=== PATIENT | female | born 1960 | race Caucasian/White ===

== ENCOUNTER 2017-01-16 18:55 | Emergency (ER) | payer OTHER ==
[~2017-01-16] VITALS: Ht 172.7 cm; Wt 110.0 kg
[~2017-01-16 18:55] MED LIST: ERGO50000 PO; GLUCTAB OR; PROT40TA PO
[2017-01-16 18:57] VITALS: BP 184/90; PULSE 101; RESP 18; TEMP 97.9; O2SAT 97
--- NOTE | 2017-01-16 19:43 | PD ---
HPI Chief Complaint: Musculoskeletal Complaint Time Seen by Provider: 19:23 Travel History International Travel<30 days: No Contact w/Intl Traveler<30days: No Traveled to known affect area: No History of Present Illness HPI 56-year-old female presents to the emergency department for evaluation right thumb injury that occurred just prior to arrival. Patient was agitated in her when she her knee gave out she fell landing on her right hand. She denies any head injury or LOC. No neck pain or back pain. No chest pain or abdominal pain. No nausea, vomiting, diarrhea. Patient is right-handed. She has no other injury or complaint at this time. There is an obvious deformity to the right thumb around the PIP joint. Severity is moderate. PFSH Past Medical History Cancer: No Cardiovascular Problems: No Endocrine: Yes Genitourinary: Yes Hepatitis: No Hiatal Hernia: No Immune Disorder: No Kidney Stones: Yes Musculoskeletal: No Neurologic: No Psychiatric: No Reproductive: Yes (born with double uterus) Respiratory: No Immunizations Current: Yes Thyroid Disease: No Tetanus Vaccination: Unknown Influenza Vaccination: No : 3 Para: 2 Miscarriage: 1 Past Surgical History Abdominal Surgery: Yes (GASTRIC BYPASS 2012) Cardiac Surgery: No Ear Surgery: No Endocrine Surgery: No Eye Surgery: Yes (lasik eye surgery right) Genitourinary Surgery: No Gynecologic Surgery: Yes (several benign cyst removed from breasts x2 c- section) Joint Replacement: No Neurologic Surgery: No Oral Surgery: No Pacemaker: No Thoracic Surgery: No Other Surgery: Yes Social History Alcohol Use: Yes (SOCIAL) Tobacco Use: No Substance Use: No Allergies-Medications (Allergen,Severity, Reaction): Coded Allergies: No Known Allergies (Verified Adverse Reaction, Unknown, 01/16/17) Reported Meds & Prescriptions Reported Meds & Active Scripts Active Ibuprofen 600 Mg Tab 600 Mg PO TID PRN [place] (Hydrocodone-Acetaminophen) 5 Mg-325 Mg Tab 1 Tab PO Q6H PRN Review of Systems Except as stated in HPI: all other systems reviewed are Neg Physical Exam Narrative GENERAL: Well-nourished, well-developed female patient, ambulatory. Afebrile. SKIN: Focused skin assessment warm/dry. No lacerations or abrasions. HEAD: Normocephalic. Atraumatic. EYES: No scleral icterus. No injection or drainage. NECK: Supple, trachea midline. No JVD or lymphadenopathy. CARDIOVASCULAR: Regular rate and rhythm without murmurs, gallops, or rubs. Right radial pulse is 2+. Capillary refill is less than 2 seconds to the right thumb. RESPIRATORY: Breath sounds equal bilaterally. No accessory muscle use. Lungs sounds are clear to auscultation. GASTROINTESTINAL: Abdomen soft, non-tender, nondistended. MUSCULOSKELETAL: No cyanosis, or edema. Patient has tenderness over right thumb with obvious deformity. She has full sensation distal right thumb. BACK: Nontender without obvious deformity. No CVA tenderness. Data Data Last Documented VS Vital Signs Date Time Temp Pulse Resp B/P (MAP) Pulse Ox O2 Delivery O2 Flow Rate FiO2 01/16/17 18:57 97.9 101 18 184/90 (121) 97 Room Air Orders Orders Ice/Cold Pack (01/16/17 19:03) Hand, Complete ([id number]) (01/16/17 ) Bupivacaine Pf 0.5% Inj (Marcaine Pf 0.5 (01/16/17 19:45) Lidocaine 1% Inj (50 Ml) (Xylocaine 1% I (01/16/17 19:45) Splint Or Brace Apply/Monitor (01/16/17 19:45) MDM Medical Decision Making Medical Screen Exam Complete: Yes Emergency Medical Condition: Yes Medical Record Reviewed: Yes Interpretation(s) Last Impressions Hand X-Ray 01/16/17 0000 Signed Impressions: Service Date/Time: Monday, January 16, 2017 19:26 - CONCLUSION: First proximal phalanx fracture with intra-articular extension to the first IP joint. Manoj Lowe MD Differential Diagnosis Dislocation versus fracture versus contusion Narrative Course 56-year-old female presents to the emergency department for evaluation of right thumb injury. Patient has obvious deformity. X-ray of the right thumb shows first proximal phalanx fracture with intra-articular extension to the first IP joint. A digital block is performed with 1% lidocaine 0.5% bupivacaine. The fracture will be realigned and thumb spica splint applied. The patient is instructed to follow-up with a hand surgeon. She'll be given the name and number of our hand surgeon on-call today. She is return here for any acute worsening of symptoms. Patient will be discharged short-term prescription for [place] as well as ibuprofen for pain. Procedures Procedure Narrative After area was cleansed with alcohol, a digital block with 1% lidocaine and 0.5 % Marcaine was done to reduce fracture of the first thumb. Diagnosis Primary Impression: Fracture of thumb, right, closed Qualified Codes: S62.511A - Displaced fracture of proximal phalanx of right thumb, initial encounter for closed fracture Referrals: Oskar Gaona III, MD 2 days Patient Instructions: General Instructions, Thumb Fracture (ED) Additional Instructions: Wear splint. Take ibuprofen as directed as needed for [id number] pain. Take [place] for moderate to severe pain. Caution this can make you drowsy so do not drive after taking. Follow-up with hand surgeon. Dr. Gaona is our hand surgeon on-call today. [facility]. Return to the emergency department for any acute worsening of symptoms. Med/Other Pt SpecificInfo: Prescription(s) given Scripts Ibuprofen (Ibuprofen) 600 Mg Tab 600 MG PO TID Y for PAIN SCALE 1 TO 10, #21 TAB 0 Refills Prov: Lolis Gonzalez 01/16/17 Hydrocodone-Acetaminophen ([place]) 5 Mg-325 Mg Tab 1 TAB PO Q6H Y for PAIN, #16 TAB 0 Refills Prov: Lolis Gonzalez 01/16/17 Disposition: 01 DISCHARGE HOME Condition: Stable Lolis Gonzalez Jan 16, 2017 19:43
--- NOTE | 2017-01-16 19:44 | RADRPT ---
EXAM DATE/TIME: 01/16/2017 19:26 [facility] COMPARISON: No previous studies available for comparison. INDICATIONS : Right hand, thumb pain, fell MEDICAL HISTORY : None. SURGICAL HISTORY : None. ENCOUNTER: Initial ACUITY: 1 day PAIN SCORE: 10/10 LOCATION: Right Hand FINDINGS: There is an oblique fracture of the first proximal phalanx, mildly displaced. No other fractures are seen. CONCLUSION: First proximal phalanx fracture with intra-articular extension to the first IP joint. Manoj Lowe MD on January 16, 2017 at 19:42 Board Certified Radiologist. This report was verified electronically.
[2017-01-16] MEDS ORDERED: LIDOCAINE HCL 1% 50 ML VIAL INFIL ONE (19:45)
[2017-01-16] MEDS ORDERED: BUPIVACAINE HCL PF 0.5% 10 ML VIAL INFIL ONE (19:45)
[2017-01-16] MEDS ORDERED: NORC5TAB PO (19:54)
[2017-01-16] MEDS ORDERED: IBUP-232 PO (19:54)
== END 2017-01-16 20:41 | disposition home or self-care (01) ==
LOC: NEPD 18:55
DX: S62.511A Displaced fracture of proximal phalanx of right thumb, initial encounter for closed fracture (principal); W19.XXXA Unspecified fall, initial encounter
CPT/HCPCS: 26725; 73130; 99284; L3808